=== PATIENT | male | born 1970 | race Caucasian/White ===

== ENCOUNTER → 2017-01-22 | Outpatient (REF) | payer OTHER | LOC: M SMT 12:50 | PROVIDERS: ATTEND Urology | DX: R35.1 Nocturia (principal) | CPT/HCPCS: 51798; 81001; 87086; G0463 ==

== ENCOUNTER → 2017-08-11 | Outpatient (CLI) | payer OTHER ==
--- NOTE | 2017-08-11 09:24 | REP ---
CT of the chest without IV contrast: There are no comparison studies. There are no masses, nodules, infiltrates or effusions. There is a minor zone of discoid atelectasis inferiorly in the lingula. There is no mediastinal adenopathy. There is no axillary adenopathy. In the absence of IV contrast the study is insensitive for hilar adenopathy. The thoracic aorta is unremarkable. The cardiac size is normal. There is no pericardial effusion. There is calcified atheroma in the anterior descending coronary artery and in the right coronary artery. Upper abdomen: There is geographic hepatic steatosis. The visualized portions of the gallbladder, pancreas and spleen are unremarkable. There is no adrenal mass. Impression: There are no nodules, masses, infiltrates.. There is minor discoid atelectasis in the lingula. There is geographic hepato steatosis. Otherwise, negative CT study of the chest. The lateral wall of the This is a category [address] Recommend annual chest CT surveillance. This can be performed utilizing the low-dose screening chest CT protocol. Signed by Griffin Paulino MD 08/11/2017 09:17 A
== END ==
LOC: M RAD 08:28
PROVIDERS: ATTEND Physician Assistant
DX: R05 Cough (principal)